=== PATIENT | female | born 1990 | race Two or more races ===

== ENCOUNTER 2022-12-28 10:54 | Emergency (ER) | payer OTHER ==
[~2022-12-28] VITALS: Ht 167.6 cm; Wt 45.4 kg
[2022-12-28] MEDS ORDERED: NORFLEX100MG PO (14:09)
[2022-12-28] MEDS ORDERED: MECLIZINE HCL12.5 MG PO (14:09)
[2022-12-28] MEDS ORDERED: KETO10TA2 PO (14:09)
== END 2022-12-28 14:13 | disposition home or self-care (01) ==
LOC: ER 10:54
DX: M54.2 Cervicalgia (principal)